=== PATIENT | male | born 1990 ===

== ENCOUNTER 2016-07-16 21:23 | Emergency (ER) | payer BC ==
--- NOTE | 2016-07-16 22:07 | UC ---
elo De Guzman Timothy, scribed for Adry Bailey MD on 07/16/16 at 2146 . Throat Pain/Nasal Zev HPI - HPI Summary HPI Summary: Ramses Little is a 25 yo male presenting to [facility] with 7/10 ache sore throat, hoarse voice and cough for the past week and some nasal discharge and sinus discomfort which has gotten better gradually, over the past week. he denies any other Sx. He has no PMHx. - History of Current Complaint Stated Complaint: SORE THROAT Time Seen by Provider: 07/16/16 21:47 Hx Obtained From: Patient Onset/Duration: Gradual Onset, Lasting Days, Still Present Severity: Moderate Pain Intensity: 7 Pain Scale Used: 0-10 Numeric Cough: Nonproductive Associated Signs & Symptoms: Positive: Hoarseness, Sinus Discomfort, Nasal Discharge - Epiglottits Risk Factors Epiglottis Risk Factors: Negative - Allergies/Home Medications Allergies/Adverse Reactions: Allergies Allergy/AdvReac Type Severity Reaction Status Date / Time No Known Allergies Allergy Verified 07/16/16 21:33 Home Medications: Home Medications NK [No Home Medications Reported] 07/16/16 [History Confirmed 07/16/16] PMH/Surg Hx/FS Hx/Imm Hx Previously Healthy: Yes - Surgical History Surgical History: None - Family History Known Family History: Negative: Diabetes - Social History Occupation: Employed Full-time Alcohol Use: Occasionally Substance Use Type: None Smoking Status (MU): Former Smoker Type: Cigarettes - Immunization History Most Recent Influenza Vaccination: none Review of Systems Constitutional: Negative Skin: Negative Eyes: Negative ENT: Sore Throat, Nasal Discharge Respiratory: Cough Cardiovascular: Negative Gastrointestinal: Negative Genitourinary: Negative Motor: Negative Neurovascular: Negative Musculoskeletal: Negative Neurological: Negative Psychological: Negative All Other Systems Reviewed And Are Negative: Yes Physical Exam Triage Information Reviewed: Yes Appearance: No Pain Distress, Well-Nourished, Ill-Appearing Vital Signs: Initial Vital Signs Temp 98.5 F 07/16/16 21:34 Pulse 88 07/16/16 21:34 Resp 16 07/16/16 21:34 BP 177/77 07/16/16 21:34 Pulse Ox 97 07/16/16 21:34 Eyes: Positive: Conjunctiva Clear ENT: Positive: Pharyngeal erythema, Nasal congestion, TMs normal, Tonsillar swelling, Muffled/hoarse voice. Negative: Tonsillar exudate Neck: Positive: Supple, Nontender, No Lymphadenopathy Respiratory: Positive: Lungs clear, Normal breath sounds, No respiratory distress Cardiovascular: Positive: RRR, No Murmur, Pulses Normal, Brisk Capillary Refill Musculoskeletal: Positive: Strength Intact, ROM Intact Neurological: Positive: Alert, Muscle Tone Normal Psychological Exam: Normal Skin Exam: Normal Throat Pain/Nasal Course/Dx - Course Assessment/Plan: Ramses Little is a 25 yo male presenting to [facility] with sore throat, hoarse voice, cough, and resolving nasal discharge and sinus congestion. His Group A rapid strep test was negative. He will be discharged with dxs pharyngitis and laryngitis. - Differential Dx/Diagnosis Differential Diagnosis/HQI/PQRI: Laryngitis, Pharyngitis, Sinusitis, URI Provider Diagnoses: pharyngitis, laryngitis Discharge - Discharge Plan Condition: Stable Disposition: HOME Patient Education Materials: Pharyngitis (ED), Laryngitis (ED) Forms: *Work Release Referrals: [facility] [Outside] Additional Instructions: I recommend salt water gargles and rest to improve your condition. Return to urgent care or the emergency department with any new or recurring symptoms The documentation as recorded by the elo naranjo Timothy accurately reflects the service I personally performed and the decisions made by me, Adry Bailey MD.
== END 2016-07-16 22:10 | disposition home or self-care (01) ==
LOC: UCEAST 21:23
DX: J02.9 Acute pharyngitis, unspecified (principal); J04.0 Acute laryngitis; Z87.891 Personal history of nicotine dependence
CPT/HCPCS: 87651; 99201; G0463